=== PATIENT | female | born 1945 | race American Indian/Alaskan Native ===

== ENCOUNTER 2019-04-27 10:34 | Inpatient (IN) | payer MEDICAID, MEDICARE ==
--- NOTE | 2019-04-27 11:25 | Consultation ---
History of Present Illness - Reason for Consult Consult date: 04/27/19 end stage renal disease, other (initiating hemodialysis) - History of Present Illness This is a 73 year old female patient well known to our practice with a pmh significant for end stage renal disease, anemia associated with chronic renal failure, type 2 diabetes mellitus, hypertension, chronic lower extremity edema, and metabolic acidosis. Patient is being direct admitted to have tunneled HD catheter placed, and to initiate hemodialysis treatments. Patient and sister were seen in our office earlier this week and informed of the procedure and need for hospitalization. Patient denies alcohol, drugs, and tobacco use. Denies use of NSAIDs. She is accompanied by her sister today. Labs on admission/consultation significant for bicarb 16 and creatinine 6.1. Nephrology was consulted for further evaluation and treatment of end stage renal disease and initiation of dialysis. Past History Past Medical History: ESRD, hypertension, other (chronic lower extremitity edema/metabolic acidosis) Medications and Allergies Allergies Allergy/AdvReac Type Severity Reaction Status Date / Time No Known Allergies Allergy Unverified 04/27/19 11:19 Home Medications Medication Instructions Recorded Confirmed Last Taken Type Amlodipine Besylate [Norvasc] 10 mg PO DAILY 04/27/19 04/27/19 04/27/19 History 10 mg Furosemide [Lasix TAB] 80 mg PO BID 04/27/19 04/27/19 04/27/19 History 80 mg Review of Systems Constitutional: no weight loss, no fever, no chills Ears, nose, mouth and throat: no nasal discharge, no epistaxis, no headache Cardiovascular: edema (bilateral lower extremities), no chest pain, no palpitations, no shortness of breath Respiratory: no cough, no shortness of breath Gastrointestinal: no abdominal pain, no nausea, no vomiting, no diarrhea Genitourinary Female: no flank pain, no dysuria, no urinary frequency, no hematuria Musculoskeletal: no frequent falls Integumentary: no rash, no pruritis, no wounds Exam - General Appearance General appearance: well-developed, well-nourished, appears stated age EENT: ATNC, PERRL, mucous membranes moist Neck: Present: neck supple, trachea midline Respiratory: Clear to Ascultation, Decreased Breath Sounds (bilateral bases) Heart: regular, normal heart rate, S1S2, no murmurs Gastrointestinal: Present: normal, normoactive bowel sounds Integumentary: no rash, warm and dry Neurologic: no focal deficit, alert and oriented x3 Musculoskeletal: Present: other (2+ pitting edema bilateral lower extremities) Psychiatric: mood/affect appropriate, cooperative Results - Lab Results 04/27/19 12:27 04/27/19 12:27 Assessment and Plan 1. End stage renal disease: Likely secondary to diabetic nephropathy. GFR is currently 8. Avoid nephrotoxic agents. Meds dosage based on GFR. Patient needs to initiate hemodialysis. Needs tunneled HD catheter placed, IR consulted. Hemodialysis: 04/27. 2. FEN: Metabolic acidosis, monitor. Monitor lytes. 3. Hypertension: 4. Edema: Bilateral lower extremities, chronic. 5. Anemia: Epogen with HD. Monitor. 6. Type 2 DM:
--- NOTE | 2019-04-27 13:21 | History and Physical Report ---
History of Present Illness Date of admission: 04/27/19 11:45 Chief complaint: My doctor sent me here because I need dialysis History of present illness: 73 YO Female with ESRD, HTN, Acidosis admitted directly at the request of Dr. Desai. Thanking him patient was seen and evaluated by the nephrology service and was found to have end-stage renal disease and was in need of dialysis. Patient instructed to seek further care at [facility]. Patient admitted directly to [facility] and placed in observation status for medical stabilization and initiation of dialysis. Vascular surgery service was consulted for dialysis catheter placement. After placement of dialysis catheter patient was taken urgently to the dialysis suite for dialysis. Patient seen and evaluated upon arrival to her room. Patient denies fever, chills, chest pain, palpitations, hemoptysis, bright red blood per rectum, skin rash, recent ill contacts. No prior admission for review. No medication listed at time of my admission for reconciliation. Past History Past Medical History: ESRD, hypertension, other (chronic lower extremitity edema/metabolic acidosis) Past Surgical History: Other (Dialysis access) Social history: single. denies: smoking, alcohol abuse, prescription drug abuse Family history: hypertension Medications and Allergies Allergies Allergy/AdvReac Type Severity Reaction Status Date / Time No Known Allergies Allergy Unverified 04/27/19 11:19 Home Medications Medication Instructions Recorded Confirmed Last Taken Type Amlodipine Besylate [Norvasc] 10 mg PO DAILY 04/27/19 04/27/19 04/27/19 History 10 mg Furosemide [Lasix TAB] 80 mg PO BID 04/27/19 04/27/19 04/27/19 History 80 mg Review of Systems Constitutional: no weight loss, no weight gain, no chills, no sweats Ears, nose, mouth and throat: no ear pain, no tinnitis, no decreased hearing, no nose pain, no nasal congestion Breasts: no change in shape, no swelling, no mass Cardiovascular: no chest pain, no orthopnea, no palpitations, no rapid/irregular heart beat, no edema, no lightheadedness, no shortness of breath Respiratory: no cough, no cough with sputum, no hemoptysis, no shortness of breath Gastrointestinal: no abdominal pain, no nausea, no diarrhea, no constipation Genitourinary Female: no pelvic pain, no flank pain, no menorrhagia Menstruation: no post hysterectomy, no ammenorrhea, no ammenorrhea on BC, no period heavy, no period spotting Rectal: no pain, no incontinence, no bleeding Musculoskeletal: no neck stiffness, no neck pain, no shooting arm pain, no shooting leg pain Integumentary: no rash, no pruritis, no redness, no sores, no wounds Neurological: no transient paralysis, no numbness, no tingling Psychiatric: no anxiety, no sleep disturbances, no insomnia, no hypersomnia, no change in appetite, no change in libido Endocrine: no cold intolerance, no heat intolerance, no excessive thirst, no flushing Hematologic/Lymphatic: no easy bruising, no lymphedema Allergic/Immunologic: no urticaria, no allergic rhinitis, no wheezing, no persistent infections, no anaphylaxis, no angioedema Exam - Constitutional Vitals: Temp Pulse Resp BP Pulse Ox 98.5 F 84 18 168/69 98 04/27/19 12:23 04/27/19 12:23 04/27/19 12:23 04/27/19 12:23 04/27/19 12:23 General appearance: Present: mild distress, obese - EENT Eyes: Present: PERRL ENT: hearing intact, clear oral mucosa - Neck Neck: Present: supple, normal ROM - Respiratory Respiratory effort: normal Respiratory: bilateral: CTA - Cardiovascular Heart Sounds: Present: S1 & S2. Absent: rub, click - Extremities Extremities: pulses symmetrical, No edema Peripheral Pulses: within normal limits - Abdominal General gastrointestinal: Present: soft, non-tender, non-distended, normal bowel sounds Female genitourinary: Present: normal - Integumentary Integumentary: Present: clear, warm, dry - Musculoskeletal Musculoskeletal: gait normal, strength equal bilaterally - Psychiatric Psychiatric: appropriate mood/affect, intact judgment & insight - Neurologic Neurologic: CNII-XII intact, moves all extremities Results - Labs CBC & Chem 7: 04/27/19 12:27 04/27/19 12:27 Assessment and Plan - Patient Problems (1) End stage renal disease Current Visit: Yes Status: Acute Plan to address problem: Nephrology consulted in ED, strict I's/O, daily weight, monitor urine output every shift, avoid nephrotoxic agents, IR consulted for Vas-Cath placement, dialysis as per renal team. (2) Hypertension Current Visit: Yes Status: Acute Qualifiers: Hypertension type: essential hypertension Qualified Code(s): I10 - Essential (primary) hypertension Plan to address problem: Monitor blood pressure every shift, supportive care, continue medical management. (3) Metabolic acidosis Current Visit: Yes Status: Acute Plan to address problem: IV fluid resuscitation therapy, repeat BMP, urgent dialysis as per renal team. IV bicarbonate therapy as clinically indicated. (4) DVT prophylaxis Current Visit: Yes Status: Acute Plan to address problem: SCD to bilateral lower extremities while in bed, patient ambulatory.
[2019-04-27 13:26] LABS: Basophils # (Auto) 0.1 K/mm3 (0.0-0.1); Eosinophils # (Auto) 0.1 K/mm3 (0.0-0.4); Eosinophils % (Auto) 1.8 % (0.0-4.3); Hematocrit 24.5 % (30.3-42.9); Hemoglobin 8.3 gm/dl (10.1-14.3); Lymphocytes # (Auto) 0.7 K/mm3 (1.2-5.4); Lymphocytes % (Auto) 12.5 % (13.4-35.0); Mean Corpuscular HGB Conc 34 % (30-34); Mean Corpuscular Volume 83 fl (79-97); Monocytes # (Auto) 0.6 K/mm3 (0.0-0.8); Monocytes % (Auto) 11.5 % (0.0-7.3); Platelet Count 236 K/mm3 (140-440); Red Blood Count 2.93 M/mm3 (3.65-5.03); Red Cell Distribution Width 15.4 % (13.2-15.2)
[2019-04-27 13:37] LABS: INR 1.02 (0.87-1.13)
[2019-04-27 13:38] LABS: Partial Thromboplastin Time 30.9 Sec. (24.2-36.6)
[2019-04-27 13:53] LABS: Calcium 8.7 mg/dL (8.4-10.2)
[2019-04-27] MEDS ORDERED: MIDAZOLAM 2 MG/2 ML INJ ONE (14:04)
[2019-04-27] MEDS ORDERED: fentaNYL 100 MCG/2 ML INJ ONE (14:04)
[2019-04-27] MEDS ORDERED: HEPARIN/NS 5000 UNIT/500ML 500 ML IR ONE (14:04)
[2019-04-27] MEDS ORDERED: SODIUM CHLORIDE 0.9% 250ML 250 ML ONE (14:05)
[2019-04-27] MEDS ORDERED: LIDOCAINE 1%/EPINEPHRINE 1:100,000 VIAL (20 ML) INFILTRATI ONE (14:05)
[2019-04-27] MEDS: HEPARIN 10,000 UNITS/10 ML VIAL ONE ×2 (14:37→14:38)
[2019-04-27] MEDS ORDERED: SODIUM CHLORIDE 0.9% 100 ML IV PRN (14:39)
[2019-04-27] MEDS ORDERED: EPOETIN ALFA 10,000 UNIT/1 ML INJ SUB-Q PRN (14:39)
--- NOTE | 2019-04-27 14:45 | Operative Report ---
Operative Report Operative Report: Exam: Ultrasound and fluoroscopic guided placement of tunneled hemodialysis catheter Clinical indication: Patient with a history of end-stage renal disease requiring dialysis access Date: 04/27/2019 Procedure: Following an explanation of the risks, benefits and alternatives; written informed consent was obtained. The patient was brought to the angiographic suite and placed in supine position on the examination table. Initial ultrasound evaluation of her neck demonstrated a patent right internal regular vein. The patient's right neck and chest wall were prepped and draped in the usual sterile fashion. 1% lidocaine was used for anesthesia. Under ultrasound guidance, the right internal jugular vein was cannulated with a 7 cm 18-gauge needle. A 0.035 guidewire was advanced centrally. The needle was removed and a 5 Tongan vertebral catheter advanced over the guidewire. Together the guidewire and catheter were advanced into the IVC. The catheter was removed. An appropriate catheter exit site was chosen along the lateral right chest wall. 1% lidocaine was used for anesthesia at the catheter exit site and along the tunnel tract. A Bard 23 cm glide path tunneled hemodialysis catheter was then tunneled antegrade from the catheter exit site of the venotomy site. Following serial dilation over the guidewire under fluoroscopy, a 15 Tongan peel-away sheath was placed over the guidewire under fluoroscopy and advanced centrally. The guidewire and trocar were removed. The catheter was placed through the peel-away sheath and the tip positioned in the proximal right atrium. The peel-away sheath was removed. Both ports flushed and aspirated easily and more than locked with appropriate volumes of heparin. The venotomy was closed using 3-0 Vicryl suture and Dermabond. 3-0 Vicryl suture and Dermabond were also used to approximate the catheter exit site. The patient tolerated the procedure well. There were no immediate post procedure complications. Conscious sedation was performed under the guidance of radiologic nursing. Continuous cardiopulmonary monitoring was utilized. Impression: Ultrasound and fluoroscopic guided placement of tunneled hemodialysis catheter via the right internal jugular vein.
[2019-04-27] MEDS ORDERED: SODIUM CHLORIDE*PRIMING MACHINE ONLY FOR DIALYSIS MC ONE (16:51)
[2019-04-27 19:47] LABS: Hepatitis B Surface Antigen Non-Reactive (Negative); Hepatitis C Virus Antibody Non-Reactive (NonReactive)
[2019-04-28] MEDS ORDERED: ACETAMINOPHEN 325 MG TAB PO PRN (01:29)
[2019-04-28] MEDS ORDERED: SODIUM CHLORIDE 0.9% 100 ML IV PRN (09:12)
--- NOTE | 2019-04-28 10:28 | Progress Note ---
Assessment and Plan 1. End stage renal disease: Likely secondary to diabetic nephropathy. GFR is currently 8. Avoid nephrotoxic agents. Meds dosage based on GFR. Patient tolerated first HD on 04/27 well. Right chest permcath placed 04/27. Awaiting outpatient HD chair. Hemodialysis: 04/27, 2.7. 2. FEN: Metabolic acidosis, monitor. Monitor lytes. 3. Hypertension: 4. Edema: Bilateral lower extremities, chronic. 5. Anemia: Epogen with HD. Monitor. 6. Type 2 DM: Subjective Date of service: 04/28/19 Interval history: Patient was seen and examined at the bedside. Sister is present at bedside. Patient tolerated initial HD on 04/27 well. She has no new complaints today. Objective - Exam Narrative Exam: General appearance: well-developed, well-nourished, appears stated age, R chest permcath EENT: ATNC, PERRL, mucous membranes moist Neck: Present: neck supple, trachea midline Respiratory: Clear to Ascultation, Decreased Breath Sounds (bilateral bases) Heart: regular, normal heart rate, S1S2, no murmurs Gastrointestinal: Present: normal, normoactive bowel sounds Integumentary: no rash, warm and dry Neurologic: no focal deficit, alert and oriented x3 Musculoskeletal: Present: other (1+ pitting edema bilateral lower extremities) Psychiatric: mood/affect appropriate, cooperative - Vital Signs Vital signs: Vital Signs - 12hr 04/28/19 04/28/19 04/28/19 00:27 01:17 06:13 Temperature 102.2 F H 100.1 F H 99.0 F Pulse Rate 81 82 67 Respiratory 20 100 H 18 Rate Blood Pressure 159/71 Blood Pressure 153/69 [Left] O2 Sat by Pulse 97 96 Oximetry - Lab 04/27/19 12:27 04/27/19 12:27 Most recent lab results Calcium 8.7 mg/dL (8.4-10.2) 04/27/19 12:27 Medications & Allergies - Medications Allergies/Adverse Reactions: Allergies No Known Allergies Allergy (Unverified 04/27/19 11:19) Home Medications: Home Medications Medication Instructions Recorded Confirmed Last Taken Type Amlodipine Besylate [Norvasc] 10 mg PO DAILY 04/27/19 04/27/19 04/27/19 History 10 mg Furosemide [Lasix TAB] 80 mg PO BID 04/27/19 04/27/19 04/27/19 History 80 mg Active Medications: Generic Name Dose Route Start Last Admin Trade Name Freq PRN Reason Stop Dose Admin Acetaminophen 650 mg 04/28/19 01:29 04/28/19 01:50 Tylenol PO 650 mg Q4H PRN Administration Pain, Mild (1-3) Epoetin Kamaljit 10,000 unit 04/27/19 14:39 Procrit SUB-Q MITESH PRN hemodialysis Sodium Chloride 100 mls @ 999 mls/hr 04/28/19 09:12 Nacl 0.9% IV MITESH PRN Hypotension
--- NOTE | 2019-04-28 10:51 | XRay Report ---
CHEST 1 VIEW INDICATION: requirement for hemodialysis placement, r/o TB COMPARISON: None FINDINGS: Support devices: Right subclavian line projected over the superior vena cava, with the tip at the lev el of the atriocaval junction. Heart: Mildly enlarged Lungs/Pleura: Somewhat linear parenchymal density in both lung bases, most likely atelectasis. No con vincing evidence of acute disease. No pneumothorax. IMPRESSION: 1. Central line in the superior vena cava, with no pneumothorax or acute disease. Signer Name: Seven Rodriguez MD Signed: 04/28/2019 10:47 AM Workstation Name: [id number]
--- NOTE | 2019-04-28 13:47 | Progress Note ---
Assessment and Plan /End stage renal disease Nephrology consulted in ED, strict I's/O, daily weight, monitor urine output every shift, avoid nephrotoxic agents, Status post perm-Cath placement by IR, dialysis as per renal team. Need outpatient dialysis set up /Hypertension Monitor blood pressure every shift, supportive care, continue medical management. /febrile illness - negative UA and CXR - blood cx ordered, monitor for now /Metabolic acidosis due to progression of chronic renal disease Monitor BMP, sodium bicarbonate p.o. /Anemia likely due to chronic disease, continue to monitor H&H / DVT prophylaxis SCD to bilateral lower extremities while in bed, patient ambulatory. Disposition Home, pending outpatient dialysis set up Brief History: 73 YO Female with ESRD, HTN, Acidosis admitted directly at the request of Dr. Desai for the initiation of dialysis. She was placed PermCath by vascular yesterday, hospice case manager consulted for outpatient dialysis set up. Discharge pending on outpatient dialysis arrangement Radiological data: Chest x-ray: No acute disease Hospitalist Physical exam: GENERAL: well-developed elderly female lying on bed appeared to be in no discomfort. HEENT: Normocephalic. Atraumatic. No conjunctival congestion or icterus. Patient has moist mucous membranes. NECK: Supple. Trachea midline. CHEST/LUNGS: Clear to auscultated bilaterally, breathing nonlabored. No wheezes crackles or rhonchi. HEART/CARDIOVASCULAR: Regular in rate and rhythm. S1 and S2 positive. ABDOMEN: Abdomen is soft, nontender. Patient has normal bowel sounds. SKIN: There is no rash. Warm and dry. NEURO: No focal motor deficit. Follows command. MUSCULOSKELETAL: No joint effusion or tenderness. EXTRIMITY: No edema, no cyanosis or clubbing. PSYCH: Cooperative. Subjective Date of service: 04/28/19 Interval history: Patient seen and examined. Medical records and medication list reviewed. No acute event overnight noted by the RN. Patient denies any chest pain or difficulty breathing. Patient is tolerating diet. Status post dialysis today, patient spiking fever Discussed plan of care at bedside with patient. Objective - Constitutional Vitals: Vital Signs - 12hr 04/28/19 06:13 Temperature 99.0 F Pulse Rate 67 Respiratory 18 Rate O2 Sat by Pulse 96 Oximetry - Labs CBC & Chem 7: 04/27/19 12:27 04/29/19 04:06 Labs: Abnormal lab results 04/27/19 Range/Units 12:27 Carbon Dioxide 16 L (22-30) mmol/L BUN 54 H (7-17) mg/dL Creatinine 6.1 H (0.7-1.2) mg/dL Glucose 148 H (65-100) mg/dL
[2019-04-28 22:21] LABS: Bilirubin,Urine NEG (Negative); Blood,Urine MOD (Negative); Color,Urine Yellow (Yellow); Mucus,Urine FEW /HPF; Urobilinogen,Urine < 2.0 mg/dL (<2.0)
[2019-04-28 22:23] LABS: Protein,Urine >500 mg/dL (Negative)
[2019-04-29 05:40] LABS: Calcium 8.1 mg/dL (8.4-10.2)
[2019-04-29] MEDS ORDERED: SODIUM CHLORIDE 0.9% 100 ML IV PRN (09:15)
--- NOTE | 2019-04-29 12:24 | Progress Note ---
Assessment and Plan 1. End stage renal disease: CKD has progressed to ESRD and started on hemodialysis this admission. Avoid nephrotoxic agents. Meds dosage based on GFR. Patient tolerated HD well. Hemodialysis: 04/27, 04/28, 04/29. Await outpatient HD chair. 2. FEN: Metabolic acidosis, improved. Monitor lytes. 3. Hypertension: Monitor BP. 4. Fever: Unclear source. CXR negative. Blood and urine culture pending. 5. Edema: Bilateral lower extremities, chronic. Improving. 6. Anemia: Epogen with HD. Monitor. 7. Type 2 DM: Examination: General appearance: well-developed, well-nourished, appears stated age, not in distress HEENT: ATNC, VANITA Neck: neck supple, trachea midline Respiratory: Clear to Ascultation, decreased breath sounds (bilateral bases) Heart: regular, normal heart rate, S1S2, no murmur Gastrointestinal: soft, normoactive bowel sounds, NT Integumentary: no rash, warm and dry Neurologic: no focal deficit, alert and oriented x3 Ext: 1+ pitting edema bilateral lower extremities Psychiatric: mood/affect appropriate, cooperative Hemodialysis access: R IJ tunnel catheter Subjective Date of service: 04/29/19 Interval history: Patient was seen and examined while on HD. Doing ok. Objective - Vital Signs Vital signs: Vital Signs - 12hr 04/29/19 04/29/19 04/29/19 05:02 09:55 10:00 Temperature 98.8 F 98.8 F Pulse Rate 70 66 65 Respiratory 18 18 Rate Blood Pressure 146/60 154/74 164/62 O2 Sat by Pulse 96 Oximetry 04/29/19 04/29/19 04/29/19 10:15 10:30 10:45 Temperature Pulse Rate 61 61 61 Respiratory Rate Blood Pressure 160/78 164/77 187/80 O2 Sat by Pulse Oximetry 04/29/19 04/29/19 04/29/19 11:00 11:15 11:30 Temperature Pulse Rate 62 62 60 Respiratory Rate Blood Pressure 144/66 154/67 166/74 O2 Sat by Pulse Oximetry 04/29/19 04/29/19 04/29/19 11:45 12:00 12:15 Temperature Pulse Rate 56 L 61 67 Respiratory Rate Blood Pressure 185/75 128/70 152/77 O2 Sat by Pulse Oximetry - Lab 04/27/19 12:27 04/29/19 04:06 Most recent lab results Calcium 8.1 mg/dL (8.4-10.2) L 04/29/19 04:06 Medications & Allergies - Medications Allergies/Adverse Reactions: Allergies No Known Allergies Allergy (Unverified 04/27/19 11:19) Home Medications: Home Medications Medication Instructions Recorded Confirmed Last Taken Type Amlodipine Besylate [Norvasc] 10 mg PO DAILY 04/27/19 04/27/19 04/27/19 History 10 mg Furosemide [Lasix TAB] 80 mg PO BID 04/27/19 04/27/19 04/27/19 History 80 mg Active Medications: Generic Name Dose Route Start Last Admin Trade Name Freq PRN Reason Stop Dose Admin Acetaminophen 650 mg 04/28/19 01:29 04/28/19 01:50 Tylenol PO 650 mg Q4H PRN Administration Pain, Mild (1-3) Epoetin Kamaljit 10,000 unit 04/27/19 14:39 Procrit SUB-Q MITESH PRN hemodialysis Sodium Chloride 100 mls @ 999 mls/hr 04/28/19 09:12 Nacl 0.9% IV MITESH PRN Hypotension Sodium Chloride 100 mls @ 999 mls/hr 04/29/19 09:15 Nacl 0.9% IV MITESH PRN Hypotension
--- NOTE | 2019-04-29 14:04 | Progress Note ---
Assessment and Plan /febrile illness - negative UA and CXR - blood cx ordered -final result pending, monitor for now /End stage renal disease Nephrology consulted in ED, strict I's/O, daily weight, monitor urine output every shift, avoid nephrotoxic agents, Status post perm-Cath placement by IR, dialysis as per renal team. Need outpatient dialysis set up /Hypertension Monitor blood pressure every shift, supportive care, continue medical management. /Metabolic acidosis due to progression of chronic renal disease Monitor BMP, sodium bicarbonate p.o. /Anemia likely due to chronic disease, continue to monitor H&H / DVT prophylaxis SCD to bilateral lower extremities while in bed, patient ambulatory. Disposition Home, pending outpatient dialysis set up Brief History: 73 YO Female with ESRD, HTN, Acidosis admitted directly at the request of Dr. Desai for the initiation of dialysis. She was placed PermCath by vascular yesterday, case assistant consulted for outpatient dialysis set up. Discharge pending on outpatient dialysis arrangement and blood cx report Radiological data: Chest x-ray: No acute disease Hospitalist Physical exam: GENERAL: well-developed elderly female lying on bed appeared to be in no discomfort. HEENT: Normocephalic. Atraumatic. No conjunctival congestion or icterus. Patient has moist mucous membranes. NECK: Supple. Trachea midline. CHEST/LUNGS: Clear to auscultated bilaterally, breathing nonlabored. No wheezes crackles or rhonchi. HEART/CARDIOVASCULAR: Regular in rate and rhythm. S1 and S2 positive. ABDOMEN: Abdomen is soft, nontender. Patient has normal bowel sounds. SKIN: There is no rash. Warm and dry. NEURO: No focal motor deficit. Follows command. MUSCULOSKELETAL: No joint effusion or tenderness. EXTRIMITY: No edema, no cyanosis or clubbing. PSYCH: Cooperative. Subjective Date of service: 04/29/19 Interval history: Patient seen and examined. Medical records and medication list reviewed. No acute event overnight noted by the RN. Patient denies any chest pain or difficulty breathing. Patient is tolerating diet. Patient had few episodes of low grade temp Discussed plan of care at bedside with patient. Objective - Constitutional Vitals: Vital Signs - 12hr 04/29/19 04/29/19 04/29/19 05:02 09:55 10:00 Temperature 98.8 F 98.8 F Pulse Rate 70 66 65 Respiratory 18 18 Rate Blood Pressure 146/60 154/74 164/62 O2 Sat by Pulse 96 Oximetry 04/29/19 04/29/19 04/29/19 10:15 10:30 10:45 Temperature Pulse Rate 61 61 61 Respiratory Rate Blood Pressure 160/78 164/77 187/80 O2 Sat by Pulse Oximetry 04/29/19 04/29/19 04/29/19 11:00 11:15 11:30 Temperature Pulse Rate 62 62 60 Respiratory Rate Blood Pressure 144/66 154/67 166/74 O2 Sat by Pulse Oximetry 04/29/19 04/29/19 04/29/19 11:45 12:00 12:15 Temperature Pulse Rate 56 L 61 67 Respiratory Rate Blood Pressure 185/75 128/70 152/77 O2 Sat by Pulse Oximetry 04/29/19 04/29/19 12:30 12:45 Temperature Pulse Rate 62 63 Respiratory Rate Blood Pressure 185/72 165/77 O2 Sat by Pulse Oximetry - Labs CBC & Chem 7: 04/27/19 12:27 04/29/19 04:06 Labs: Abnormal lab results 04/29/19 Range/Units 04:06 Sodium 136 L (137-145) mmol/L Chloride 96.8 L (98-107) mmol/L BUN 28 H (7-17) mg/dL Creatinine 4.2 H (0.7-1.2) mg/dL Glucose 121 H (65-100) mg/dL Calcium 8.1 L (8.4-10.2) mg/dL
[2019-04-29] MEDS ORDERED: SODIUM CHLORIDE*PRIMING MACHINE ONLY FOR DIALYSIS MC ONE (15:36)
[2019-04-29] MEDS: amLODIPine 5 MG TAB PO SCH (16:32)
--- NOTE | 2019-04-30 09:27 | Progress Note ---
Assessment and Plan 1. End stage renal disease: CKD has progressed to ESRD and started on hemodialysis this admission. Avoid nephrotoxic agents. Meds dosage based on GFR. Patient tolerated HD well. Hemodialysis: 04/27, 04/28, 04/29. Await outpatient HD chair. 2. FEN: Metabolic acidosis, improved. Monitor lytes. 3. Hypertension: Add Lisinopril. Monitor BP. 4. Fever: Unclear source. CXR negative. Blood and urine culture pending. 5. Edema: Bilateral lower extremities, chronic. Improving. 6. Anemia: Epogen with HD. Monitor. 7. Type 2 DM: Examination: General appearance: well-developed, well-nourished, appears stated age, not in distress HEENT: ATNC, VANITA Neck: neck supple, trachea midline Respiratory: Clear to Ascultation, decreased breath sounds (bilateral bases) Heart: regular, normal heart rate, S1S2, no murmur Gastrointestinal: soft, normoactive bowel sounds, NT Integumentary: no rash, warm and dry Neurologic: no focal deficit, alert and oriented x3 Ext: 1+ pitting edema bilateral lower extremities Psychiatric: mood/affect appropriate, cooperative Hemodialysis access: R IJ tunnel catheter Subjective Date of service: 04/30/19 Interval history: Patient was seen and examined while on HD. Doing ok. Objective - Vital Signs Vital signs: Vital Signs - 12hr 04/29/19 04/30/19 22:43 05:32 Temperature 98.5 F 98.9 F Pulse Rate 71 64 Respiratory 18 20 Rate Blood Pressure 147/71 161/84 O2 Sat by Pulse 97 96 Oximetry - Lab 04/27/19 12:27 04/29/19 04:06 Most recent lab results Calcium 8.1 mg/dL (8.4-10.2) L 04/29/19 04:06 Medications & Allergies - Medications Allergies/Adverse Reactions: Allergies No Known Allergies Allergy (Unverified 04/27/19 11:19) Home Medications: Home Medications Medication Instructions Recorded Confirmed Last Taken Type Amlodipine Besylate [Norvasc] 10 mg PO DAILY 04/27/19 04/27/19 04/27/19 History 10 mg Furosemide [Lasix TAB] 80 mg PO BID 04/27/19 04/27/19 04/27/19 History 80 mg Active Medications: Generic Name Dose Route Start Last Admin Trade Name Freq PRN Reason Stop Dose Admin Acetaminophen 650 mg 04/28/19 01:29 04/28/19 01:50 Tylenol PO 650 mg Q4H PRN Administration Pain, Mild (1-3) Amlodipine Besylate 10 mg 04/29/19 13:00 04/29/19 16:32 Amlodipine PO 10 mg DAILY VANNESSA Administration Epoetin Kamaljit 10,000 unit 04/27/19 14:39 Procrit SUB-Q MITESH PRN hemodialysis Heparin Sodium (Porcine) 5,000 unit 04/29/19 22:00 Heparin SUB-Q Q12HR VANNESSA Sodium Chloride 100 mls @ 999 mls/hr 04/28/19 09:12 Nacl 0.9% IV MITESH PRN Hypotension Sodium Chloride 100 mls @ 999 mls/hr 04/29/19 09:15 Nacl 0.9% IV MITESH PRN Hypotension
[2019-04-30] MEDS: amLODIPine 5 MG TAB PO SCH (09:55)
[2019-04-30] MEDS: LISINOPRIL 20 MG TAB PO SCH (09:55)
[2019-04-30] MEDS: HEPARIN 5,000 UNIT/1 ML VIAL SUB-Q SCH (09:59)
--- NOTE | 2019-04-30 12:01 | Progress Note ---
Assessment and Plan /febrile illness - resolved - negative UA and CXR - blood cx ordered -negative /End stage renal disease Nephrology consulted in ED, strict I's/O, daily weight, monitor urine output every shift, avoid nephrotoxic agents, Status post perm-Cath placement by IR, dialysis as per renal team. Need outpatient dialysis set up /Hypertension Monitor blood pressure every shift, supportive care, continue medical management. /Metabolic acidosis due to progression of chronic renal disease Monitor BMP, sodium bicarbonate p.o. /Anemia likely due to chronic disease, continue to monitor H&H / DVT prophylaxis SCD to bilateral lower extremities while in bed, patient ambulatory. Disposition Home, pending outpatient dialysis set up Brief History: 73 YO Female with ESRD, HTN, Acidosis admitted directly at the request of Dr. Desai for the initiation of dialysis. She was placed PermCath by vascular yesterday, bilingual patient support caseworker consulted for outpatient dialysis set up. Discharge pending on outpatient dialysis arrangement Radiological data: Chest x-ray: No acute disease Hospitalist Physical exam: GENERAL: well-developed elderly female lying on bed appeared to be in no discomfort. HEENT: Normocephalic. Atraumatic. No conjunctival congestion or icterus. Nicole ent has moist mucous membranes. NECK: Supple. Trachea midline. CHEST/LUNGS: Clear to auscultated bilaterally, breathing nonlabored. No wheezes crackles or rhonchi. HEART/CARDIOVASCULAR: Regular in rate and rhythm. S1 and S2 positive. ABDOMEN: Abdomen is soft, nontender. Patient has normal bowel sounds. SKIN: There is no rash. Warm and dry. NEURO: No focal motor deficit. Follows command. MUSCULOSKELETAL: No joint effusion or tenderness. EXTRIMITY: No edema, no cyanosis or clubbing. PSYCH: Cooperative. Subjective Date of service: 04/30/19 Interval history: Patient seen and examined. Medical records and medication list reviewed. No acute event overnight noted by the RN. Patient denies any chest pain or difficulty breathing. Patient is tolerating diet. Patient mostly afebrile since yesterday Discussed plan of care at bedside with patient. Pending outpt HD setup Objective - Constitutional Vitals: Vital Signs - 12hr 04/30/19 04/30/19 05:32 09:55 Temperature 98.9 F Pulse Rate 64 64 Respiratory 20 Rate Blood Pressure 161/84 161/84 O2 Sat by Pulse 96 Oximetry - Labs CBC & Chem 7: 05/01/19 07:50 05/01/19 07:50
[2019-05-01 08:08] LABS: Hematocrit 22.6 % (30.3-42.9); Hemoglobin 7.6 gm/dl (10.1-14.3); Mean Corpuscular HGB Conc 34 % (30-34); Mean Corpuscular Volume 84 fl (79-97); Platelet Count 159 K/mm3 (140-440); Red Cell Distribution Width 15.2 % (13.2-15.2)
[2019-05-01 08:29] LABS: Calcium 8.2 mg/dL (8.4-10.2)
[2019-05-01] MEDS: amLODIPine 5 MG TAB PO SCH (10:14)
[2019-05-01] MEDS: LISINOPRIL 20 MG TAB PO SCH (10:15)
[2019-05-01] MEDS: HEPARIN 5,000 UNIT/1 ML VIAL SUB-Q SCH (10:17)
--- NOTE | 2019-05-01 12:24 | Progress Note ---
Assessment and Plan 1. End stage renal disease: CKD has progressed to ESRD and started on hemodialysis this admission. Avoid nephrotoxic agents. Meds dosage based on GFR. Patient tolerated HD well. Hemodialysis: 04/27, 04/28, 04/29. Await outpatient HD chair. 2. FEN: Metabolic acidosis, improved. Monitor lytes. 3. Hypertension: BP controlled. Monitor BP. 4. Fever: Unclear source. CXR negative. Blood and urine culture pending. 5. Edema: Bilateral lower extremities, chronic. Improving. 6. Anemia: Epogen with HD. Monitor. 7. Type 2 DM: Examination: General appearance: well-developed, well-nourished, appears stated age, not in distress HEENT: ATNC, VANITA Neck: neck supple, trachea midline Respiratory: Clear to Ascultation, decreased breath sounds (bilateral bases) Heart: regular, normal heart rate, S1S2, no murmur Gastrointestinal: soft, normoactive bowel sounds, NT Integumentary: no rash, warm and dry Neurologic: no focal deficit, alert and oriented x3 Ext: trace pitting edema bilateral lower extremities Psychiatric: mood/affect appropriate, cooperative Hemodialysis access: R IJ tunnel catheter Subjective Date of service: 05/01/19 Interval history: Patient was seen and examined while on HD. Doing ok. Objective - Vital Signs Vital signs: Vital Signs - 12hr 05/01/19 05/01/19 05/01/19 04:17 04:25 10:14 Temperature 99.0 F Pulse Rate 62 59 L Respiratory 16 Rate Blood Pressure 134/57 120/57 120/45 O2 Sat by Pulse 97 99 Oximetry 05/01/19 05/01/19 10:15 11:18 Temperature 97.3 F L Pulse Rate 60 Respiratory 20 Rate Blood Pressure 120/45 115/48 O2 Sat by Pulse 100 Oximetry - Lab 05/01/19 07:50 05/01/19 07:50 Most recent lab results Calcium 8.2 mg/dL (8.4-10.2) L 05/01/19 07:50 Phosphorus 4.40 mg/dL (2.5-4.5) 05/01/19 07:50 Medications & Allergies - Medications Allergies/Adverse Reactions: Allergies No Known Allergies Allergy (Unverified 04/27/19 11:19) Home Medications: Home Medications Medication Instructions Recorded Confirmed Last Taken Type Amlodipine Besylate [Norvasc] 10 mg PO DAILY 04/27/19 04/27/19 04/27/19 History 10 mg Furosemide [Lasix TAB] 80 mg PO BID 04/27/19 04/27/19 04/27/19 History 80 mg Active Medications: Generic Name Dose Route Start Last Admin Trade Name Freq PRN Reason Stop Dose Admin Acetaminophen 650 mg 04/28/19 01:29 04/28/19 01:50 Tylenol PO 650 mg Q4H PRN Administration Pain, Mild (1-3) Amlodipine Besylate 10 mg 04/29/19 13:00 05/01/19 10:14 Amlodipine PO Not Given DAILY VANNESSA Epoetin Kamaljit 10,000 unit 04/27/19 14:39 Procrit SUB-Q MITESH PRN hemodialysis Heparin Sodium (Porcine) 5,000 unit 04/29/19 22:00 05/01/19 10:17 Heparin SUB-Q 5,000 unit Q12HR VANNESSA Administration Sodium Chloride 100 mls @ 999 mls/hr 04/28/19 09:12 Nacl 0.9% IV MITESH PRN Hypotension Sodium Chloride 100 mls @ 999 mls/hr 04/29/19 09:15 Nacl 0.9% IV MITESH PRN Hypotension Lisinopril 20 mg 04/30/19 10:00 05/01/19 10:15 Zestril PO Not Given QDAY VANNESSA
--- NOTE | 2019-05-01 15:29 | Discharge Summary ---
Providers - Providers Date of Admission: 05/01/19 08:28 Date of discharge: 05/01/19 Attending physician: ELIJAH BROWN 04/27/19 11:16 Consult to Interventional Radiology [CONS] Routine Consulting Provider: MIKE CANTU Reason For Exam: needs tunneled HD catheter Place consult to:: DR. CANTU Notified:: OFFICE Phone number called:: [phone] Was contact made?: Yes If yes, spoke with:: GALEN Time called:: 12:18 Comment:: PAT NOTIFIED 04/27/19 11:41 Consult to Physician [CONS] Routine Comment: Consulting Provider: SOFÍA SALES Physician Instructions: Reason For Exam: ESRD NEEDING TO START DIALYSIS Primary care physician: SOFÍA SALES Hospitalization Pertinent studies: CXR - no acute disease Hospital course: Discharge diagnosis and Mx: /febrile illness - resolved - negative UA and CXR - blood cx ordered -negative /End stage renal disease Nephrology consulted in ED, strict I's/O, daily weight, monitor urine output every shift, avoid nephrotoxic agents, Status post perm-Cath placement by IR, dialysis as per renal team. Need outpatient dialysis set up - will f/u with Dr Sales /Hypertension Monitor blood pressure every shift, supportive care, continue medical management. on amlodipine and lisinopril /Metabolic acidosis due to progression of chronic renal disease Monitor BMP, sodium bicarbonate p.o. /Anemia likely due to chronic disease, continue to monitor H&H / DVT prophylaxis SCD to bilateral lower extremities while in bed, patient ambulatory. Disposition Home, pending outpatient dialysis set up -would be taken care off by Dr Sales Hospitalist Physical exam: GENERAL: well-developed elderly female lying on bed appeared to be in no discomfort. HEENT: Normocephalic. Atraumatic. No conjunctival congestion or icterus. Patient has moist mucous membranes. NECK: Supple. Trachea midline. CHEST/LUNGS: Clear to auscultated bilaterally, breathing nonlabored. No wheezes crackles or rhonchi. HEART/CARDIOVASCULAR: Regular in rate and rhythm. S1 and S2 positive. ABDOMEN: Abdomen is soft, nontender. Patient has normal bowel sounds. SKIN: There is no rash. Warm and dry. NEURO: No focal motor deficit. Follows command. MUSCULOSKELETAL: No joint effusion or tenderness. EXTRIMITY: No edema, no cyanosis or clubbing. PSYCH: Cooperative. Time spent for discharge: 34 minutes Core Measure Documentation - Palliative Care Palliative Care/ Comfort Measures: Not Applicable - Core Measures Any of the following diagnoses?: history only Exam - Constitutional Vitals: Temp Pulse Resp BP Pulse Ox 97.3 F L 60 20 115/48 100 05/01/19 11:18 05/01/19 11:18 05/01/19 11:18 05/01/19 11:18 05/01/19 11:18 Plan Activity: advance as tolerated Weight Bearing Status: Weight Bear as Tolerated Diet: renal Special Instructions: restrict fluid intake to (./) Follow up with: SOFÍA SALES MD [Primary Care Provider] - 7 Days Prescriptions: lisinopriL [Zestril TAB] 10 mg PO QDAY #30 tablet
[2019-05-01 17:21] VITALS: BP 121/50
[2019-05-02] MEDS ORDERED: LISINOPRIL 10 MG TAB PO SCH (10:00)
[2019-05-02] MEDS ORDERED: LISINOPRIL 20 MG TAB PO SCH (10:00)
== END 2019-05-01 19:00 | disposition home or self-care (01) | DRG 673 ==
LOC: 3A 10:34 → UNDOADMIN 10:34 → 3A 11:45 → INTOOBSV 11:45 → OBSVTOIN 05-01 08:28
PROVIDERS: ADMIT Internal Medicine; ATTEND Internal Medicine
PROC: 5A1D70Z Performance of Urinary Filtration, Intermittent, Less than 6 Hours Per Day (ICD-10-PCS; principal; 2019-04-27)
PROC: 0JH63XZ Insertion of Tunneled Vascular Access Device into Chest Subcutaneous Tissue and Fascia, Percutaneous Approach (ICD-10-PCS; 2019-04-27)
PROC: 02H633Z Insertion of Infusion Device into Right Atrium, Percutaneous Approach (ICD-10-PCS; 2019-04-27)
PROC: B5181ZA Fluoroscopy of Superior Vena Cava using Low Osmolar Contrast, Guidance (ICD-10-PCS; 2019-04-27)
PROC: B543ZZA Ultrasonography of Right Jugular Veins, Guidance (ICD-10-PCS; 2019-04-27)
PROC: 5A1D70Z Performance of Urinary Filtration, Intermittent, Less than 6 Hours Per Day (ICD-10-PCS; 2019-04-28)
PROC: 5A1D70Z Performance of Urinary Filtration, Intermittent, Less than 6 Hours Per Day (ICD-10-PCS; 2019-04-29)
DX: I12.0 Hypertensive chronic kidney disease with stage 5 chronic kidney disease or end stage renal disease (principal); N18.6 End stage renal disease; E11.22 Type 2 diabetes mellitus with diabetic chronic kidney disease; D63.1 Anemia in chronic kidney disease; R60.9 Edema, unspecified; E87.2 Acidosis; Z82.49 Family history of ischemic heart disease and other diseases of the circulatory system; Z99.2 Dependence on renal dialysis
CPT/HCPCS: 36415; 36558; 71045; 76937; 77001; 80048; 80053; 80074; 81001; 84100; 85025; 85027; 85610; 85730; 87040; 87086; G0378; C1750; G0379; J1644; J2250; J3010; J7030; J7050

== ENCOUNTER 2019-05-17 13:05 | Emergency (ER) | payer MEDICARE ==
--- NOTE | 2019-05-17 13:32 | Event Note ---
ED Screening Note Date of service: 05/17/19 Time: 13:31 ED Screening Note: 73 y o fem was sent by her pcp for abnormal lab findings, low hemaglobin This initial assessment/diagnostic orders/clinical plan/treatment(s) is/are subject to change based on patients health status, clinical progression and re- assessment by fellow clinical providers in the ED. Further treatment and workup at subsequent clinical providers discretion. Patient/guardian urged not to elope from the ED as their condition may be serious if not clinically assessed and managed. Initial orders include: cbc,bmp,
[2019-05-17 16:14] LABS: Albumin 3.8 g/dL (3.9-5); Calcium 8.8 mg/dL (8.4-10.2)
[2019-05-17 16:17] LABS: Hematocrit 24.5 % (30.3-42.9); Hemoglobin 8.1 gm/dl (10.1-14.3); Mean Corpuscular HGB Conc 33 % (30-34); Mean Corpuscular Volume 84 fl (79-97); Red Blood Count 2.91 M/mm3 (3.65-5.03); Red Cell Distribution Width 14.8 % (13.2-15.2)
[2019-05-17 16:18] LABS: Platelet Count 188 K/mm3 (140-440)
--- NOTE | 2019-05-17 20:21 | Emergency Department Report ---
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 Patient denies any shortness of breath, headache, dizziness. Patient also denies chest pain. Patient denies any blood in her stool or any other abnormal bleeding. -: unknown Severity scale (0 -10): 0 Improves with: none Worsens with: none Associated Symptoms: denies other symptoms Treatments Prior to Arrival: none - Related Data Home Medications Medication Instructions Recorded Confirmed Last Taken Amlodipine Besylate [Norvasc] 10 mg PO DAILY 04/27/19 04/27/19 04/27/19 10 mg Previous Rx's Medication Instructions Recorded Last Taken Type lisinopriL [Zestril TAB] 10 mg PO QDAY #30 tablet 05/01/19 Unknown Rx Allergies Allergy/AdvReac Type Severity Reaction Status Date / Time No Known Allergies Allergy Unverified 04/27/19 11:19 ED Review of Systems ROS: Stated complaint: SENT BY /BLOOD COUNT LOW Other details as noted in HPI Comment: All other systems reviewed and negative Constitutional: denies: chills, fever Eyes: denies: eye pain, eye discharge, vision change ENT: denies: ear pain, throat pain Respiratory: denies: cough, shortness of breath, wheezing Cardiovascular: denies: chest pain, palpitations Endocrine: no symptoms reported Gastrointestinal: denies: abdominal pain, nausea, diarrhea Genitourinary: denies: urgency, dysuria, discharge Musculoskeletal: denies: back pain, joint swelling, arthralgia Skin: denies: rash, lesions Neurological: denies: headache, weakness, paresthesias Psychiatric: denies: anxiety, depression Hematological/Lymphatic: denies: easy bleeding, easy bruising ED Past Medical Hx - Past Medical History Previous Medical History?: Yes Hx Hypertension: Yes Hx Renal Disease: Yes (Tues, Th, Sat) - Surgical History Additional Surgical History: right chest wall vascath - Social History Smoking Status: Never Smoker Substance Use Type: None - Medications Home Medications: Home Medications Medication Instructions Recorded Confirmed Last Taken Type Amlodipine Besylate [Norvasc] 10 mg PO DAILY 04/27/19 04/27/19 04/27/19 History 10 mg lisinopriL [Zestril TAB] 10 mg PO QDAY #30 tablet 05/01/19 Unknown Rx ED Physical Exam - General Limitations: No Limitations General appearance: alert, in no apparent distress - Head Head exam: Present: atraumatic, normocephalic - Eye Eye exam: Present: normal appearance, PERRL, EOMI - ENT ENT exam: Present: mucous membranes moist - Neck Neck exam: Present: normal inspection - Respiratory Respiratory exam: Present: normal lung sounds bilaterally. Absent: respiratory distress - Cardiovascular Cardiovascular Exam: Present: regular rate, normal rhythm. Absent: systolic murmur, diastolic murmur, rubs, gallop - GI/Abdominal GI/Abdominal exam: Present: soft, normal bowel sounds. Absent: distended, tenderness - Extremities Exam Extremities exam: Present: normal inspection - Back Exam Back exam: Present: normal inspection - Neurological Exam Neurological exam: Present: alert, oriented X3, CN II-XII intact. Absent: motor sensory deficit - Psychiatric Psychiatric exam: Present: normal affect, normal mood - Skin Skin exam: Present: warm, dry, intact, normal color. Absent: rash ED Course Vital Signs 05/17/19 05/17/19 13:30 20:09 Temperature 98.8 F Pulse Rate 83 69 Respiratory 18 18 Rate Blood Pressure 143/51 Blood Pressure 148/56 [Right] O2 Sat by Pulse 98 99 Oximetry ED Medical Decision Making - Lab Data Result diagrams: 05/17/19 15:33 05/17/19 15:33 Lab Results 05/17/19 05/17/19 05/17/19 Range/Units 15:30 15:33 15:33 WBC 6.2 (4.5-11.0) K/mm3 RBC 2.91 L (3.65-5.03) M/mm3 Hgb 8.1 L (10.1-14.3) gm/dl Hct 24.5 L (30.3-42.9) % MCV 84 (79-97) fl MCH 28 (28-32) pg MCHC 33 (30-34) % RDW 14.8 (13.2-15.2) % Plt Count 188 (140-440) K/mm3 Lymph % (Auto) [employer]ights [employer] Measures [place] % (Auto) [employer]ights [employer] Measures Eos % (Auto) [employer]ights [employer] Measures Baso % (Auto) Inspector Weights And Measures Lymph # [employer]ights [employer] Measures [place] # [employer]ights [employer] Measures Eos # [employer]ights [employer] Measures Baso # [employer]ights [employer] Measures Seg Neutrophils % [employer]ights [employer] Measures Seg Neutrophils # Inspector Weights And Measures Sodium 135 L (137-145) mmol/L Potassium 4.0 (3.6-5.0) mmol/L Chloride 93.9 L (98-107) mmol/L Carbon Dioxide 23 (22-30) mmol/L Anion Gap 22 mmol/L BUN 28 H (7-17) mg/dL Creatinine 4.3 H (0.7-1.2) mg/dL Estimated GFR 12 ml/min BUN/Creatinine Ratio 7 % Glucose 91 (65-100) mg/dL Calcium 8.8 (8.4-10.2) mg/dL Total Bilirubin 0.20 (0.1-1.2) mg/dL AST 19 (5-40) units/L ALT 7 (7-56) units/L Alkaline Phosphatase 95 (35-129) units/L Total Protein 7.8 (6.3-8.2) g/dL Albumin 3.8 L (3.9-5) g/dL Albumin/Globulin Ratio 1.0 % Blood Type O POSITIVE Antibody Screen Negative - Medical Decision Making Updated the patient and told her hemoglobin was 8.1 Prior hemoglobins on 05/01 was 7.6 and 05/17 8.3 Spoke with and he states that the laboratory value that was called into him was 6.3 Patient can be discharged home Critical care attestation.: If time is entered above; I have spent that time in minutes in the direct care of this critically ill patient, excluding procedure time. ED Disposition Clinical Impression: Anemia Disposition: - TO HOME OR SELFCARE Is pt being admited?: No Does the pt Need Aspirin: No Condition: Stable Instructions: Anemia (ED) Additional Instructions: return if worse Referrals: ROBIN CULLEN MD [Primary Care Provider] - 3-5 Days Time of Disposition: 20:20
[2019-05-17 21:18] VITALS: BP 107/65
== END 2019-05-17 21:20 | disposition home or self-care (01) ==
LOC: ED 13:05
DX: D64.9 Anemia, unspecified (principal); I10 Essential (primary) hypertension; Z87.448 Personal history of other diseases of urinary system; Z98.890 Other specified postprocedural states; Z79.899 Other long term (current) drug therapy
CPT/HCPCS: 36415; 80053; 85025; 86850; 86900; 86901

== ENCOUNTER 2019-05-31 13:54 | Outpatient (CLI) | payer MEDICARE ==
--- NOTE | 2019-05-31 16:08 | Ultrasound Report ---
COMPLETE BILATERAL BREAST ULTRASOUND HISTORY: Abnormal mammogram and abnormal bilateral breast ultrasound. COMPARISON: [facility] 03/31/2019 and 04/26/2019 mammograms and bilateral breast ultrasound.. FINDINGS: Complete sonographic evaluation of the right breast including imaging of the four quadrant s and subareolar areas reveals no distinct abnormality. The technologist measured an area of benign a ppearing breast parenchyma at 11:00 7 cm from the nipple. Ultrasound of the right axilla demonstrates several lymph nodes with central fat and benign morphology. The cortex measures approximately 4 mm m aximum. Complete sonographic evaluation of the left breast including imaging of the four quadrants and subare olar areas reveals several abnormalities. An irregular heterogeneous hypoechoic solid mass at 2:00 15 cm from the nipple measures approximately 2.9 x 1.1 x 1.2 cm. This mass is palpable and correlates w ith a mammographic mass with calcifications. No mass is identified at 1:00. An oval solid relatively smooth retroareolar mass at 12:00 is hypoechoic and measures 1.6 x 1.2 x 1.5 cm. It has a large benig n-appearing calcification within it. An abnormal retroareolar duct at 7:00 contains intraductal mass in the duct measures 7 mm in diameter. There is no mammographic correlate for this ductal mass or for the hypoechoic mass which is retroareolar at 12:00. Ultrasound of the left axilla demonstrates sever al lymph nodes with central fat and benign morphology. The cortex of the largest lymph node measures 3 mm. IMPRESSION: 1. A suspicious 2.9 cm left breast mass at 2:00 15 cm from the nipple. Recommend ultrasound-guided ne edle biopsy. 2. A suspicious intraductal retroareolar mass at 7:00. Recommend ultrasound-guided vacuum-assisted ne edle biopsy. 3. A benign 1.6 cm retroareolar mass at 12:00. 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 4. Benign findings and the right breast and no suspicious finding in the right breast. BI-RADS Category 4: Suspicious Signer Name: Janak Baltazar MD Signed: 05/31/2019 4:04 PM Workstation Name: [id number]
== END 2019-05-31 13:55 | disposition home or self-care (01) ==
LOC: SPVWC 13:54
PROVIDERS: ATTEND Surgery
DX: Z12.31 Encounter for screening mammogram for malignant neoplasm of breast (principal); N63.41 Unspecified lump in right breast, subareolar

== ENCOUNTER 2019-08-18 08:34 | Observation (INO) | payer MEDICARE ==
--- NOTE | 2019-08-07 12:43 | Anesthesia Consultation ---
Anesthesia Consult and Med Hx Date of service: 08/18/19 - Airway Anesthetic Teeth Evaluation: Edentulous ROM Head & Neck: Adequate Mental/Hyoid Distance: Adequate Mallampati Class: Class II Intubation Access Assessment: Good - Pre-Operative Health Status ASA Pre-Surgery Classification: ASA3 Proposed Anesthetic Plan: General Nerve Block: PEC - Pulmonary Hx Smoking: No Hx Respiratory Symptoms: No Hx Sleep Apnea: No (AGUSTIN PRE SCREEN LOW RISK.) - Cardiovascular System Hx Hypertension: Yes (X 8 MONTHS) Hx Heart Attack/AMI: No Hx Percutaneous Transluminal Coronary Angioplasty (PTCA): No Hx Cardia Arrhythmia: No - Central Nervous System CVA: No - Gastrointestinal Hx Gastroesophageal Reflux Disease: No - Endocrine Hx Renal Disease: Yes Hx End Stage Renal Disease: Yes ( started HD 04/2019) Hx Liver Disease: No Hx Non-Insulin Dependent Diabetes: No (noted in chart review but patient denies) Hx Hypothyroidism: Yes (NO LONGER ON MEDS) - Hematic Hx Anemia: Yes - Other Systems Hx Cancer: Yes
[~2019-08-18 08:34] MED LIST: ceFAZolin/Water 2 GM/20 ML 2 GM/20 ML SYRINGE IV NR
[2019-08-18] MEDS ORDERED: ONDANSETRON 4 MG/2 ML INJ IV PRN ×2 (08:48→15:54)
[2019-08-18] MEDS ORDERED: HYDROmorphone 1 MG/1 ML INJ IV PRN (08:48)
[2019-08-18] MEDS ORDERED: fentaNYL 100 MCG/2 ML INJ IV ONE (08:48)
[2019-08-18] MEDS ORDERED: ACETAMINOPHEN 325 MG TAB PO ONE (08:52)
[2019-08-18] MEDS ORDERED: SODIUM CHLORIDE 0.9% 1000 ML 1,000 ML IV SCH (09:00)
[2019-08-18] MEDS ORDERED: MIDAZOLAM 2 MG/2 ML INJ IV NR (09:00)
[2019-08-18] MEDS ORDERED: CELECOXIB 200 MG CAP PO NR (09:00)
[2019-08-18] MEDS ORDERED: BUPIVACAINE-EPINEPHRINE/PF 0.25%-1:200,000 (30 ML) VIAL INFILTRATI ONE (09:50)
[2019-08-18 10:00] LABS: Hematocrit 37.2 % (30.3-42.9); Hemoglobin 12.7 gm/dl (10.1-14.3); Mean Corpuscular HGB Conc 34 % (30-34); Mean Corpuscular Volume 80 fl (79-97); Platelet Count 186 K/mm3 (140-440); Red Blood Count 4.67 M/mm3 (3.65-5.03); Red Cell Distribution Width 18.9 % (13.2-15.2)
[2019-08-18] MEDS ORDERED: NEOSTIGMINE 10MG/10 ML INJ MDV ONE (10:00)
[2019-08-18] MEDS ORDERED: SODIUM CHLORIDE P/F VIAL 10 ML 10 ML ONE (10:19)
[2019-08-18] MEDS ORDERED: METHYLENE BLUE 50 MG/10 ML AMP ONE (10:19)
[2019-08-18] MEDS ORDERED: propofoL 200 MG/20 ML VIAL IV ONE (10:22)
[2019-08-18] MEDS ORDERED: ROCURONIUM 50 MG/5 ML INJ IV ONE (10:22)
[2019-08-18] MEDS ORDERED: dexAMETHasone 20 MG/5 ML VIAL ONE (10:22)
[2019-08-18] MEDS ORDERED: HYDROmorphone 1 MG/1 ML INJ ONE (10:22)
[2019-08-18] MEDS ORDERED: ONDANSETRON 4 MG/2 ML INJ ONE (10:22)
[2019-08-18] MEDS ORDERED: LIDOCAINE MPF (2%) 20 MG/1 ML VIAL 5 ML ONE (10:22)
[2019-08-18 10:35] LABS: Calcium 9.5 mg/dL (8.4-10.2)
[2019-08-18] MEDS ORDERED: METHYLENE BLUE 50 MG/10 ML AMP IV ONE (11:09)
[2019-08-18] MEDS ORDERED: SODIUM CHLORIDE 0.9% P/F 10 ML VIAL INFILTRATI ONE (11:10)
[2019-08-18] MEDS ORDERED: WATER FOR IRRIG STERILE 1,500 ML BOTTLE IR ONE (11:11)
[2019-08-18] MEDS ORDERED: GLYCOPYRROLATE 0.4 MG/2 ML INJ ONE ×2 (11:57→14:50)
[2019-08-18] MEDS ORDERED: ePHEDrine SULFATE 50 MG/1 ML INJ ONE (12:21)
[2019-08-18] MEDS ORDERED: hydrALAZINE 20 MG/1 ML INJ ONE (15:28)
[2019-08-18] MEDS ORDERED: VERAPAMIL 5 MG/2 ML INJ ONE (15:31)
[2019-08-18] MEDS ORDERED: ACETAMINOPHEN 325 MG TAB PO PRN (15:54)
--- NOTE | 2019-08-18 15:56 | History and Physical Report ---
History of Present Illness Chief complaint: I need dialysis History of present illness: 73 YO Female with ESRD on HD (T,R,Sa), HTN,BrCa admitted directly to medical floor for reinitiation of dialysis. Pt seen and evaluated in her room. Patient denies fever, chills, chest pain, palpitations, hemoptysis, bright red b lood per rectum, skin rash, recent ill contacts, or known exposure to COVID-19. Prior admission on 05/04/2019 reviewed. All listed medication reconciled at time of admission. advanced care planning conducted. Nephrology consulted for dialysis. Past History Past Medical History: cancer, ESRD, hypertension, other (see hpi) Past Surgical History: mastectomy, Other (dialysis access) Social history: single Family history: hypertension Medications and Allergies Allergies Allergy/AdvReac Type Severity Reaction Status Date / Time No Known Allergies Allergy Verified 06/07/19 17:40 Home Medications Medication Instructions Recorded Confirmed Last Taken Type Amlodipine Besylate [Norvasc] 10 mg PO DAILY 04/27/19 08/18/19 08/18/19 05:00 History lisinopriL [Zestril TAB] 10 mg PO QDAY #30 tablet 05/01/19 08/18/19 08/17/19 09:30 Rx Anastrozole [Arimidex] 1 mg PO DAILY 08/02/19 08/18/19 08/17/19 09:30 History Ergocalciferol (Vitamin D2) 50,000 unit PO QWEEK 08/02/19 08/18/19 08/12/19 12:00 History [Vitamin D2] Furosemide [Lasix TAB] 80 mg PO DAILY 08/02/19 08/18/19 Unknown History hydroCHLOROthiazide [Hctz] 12.5 mg PO QDAY 08/02/19 08/18/19 08/17/19 09:30 History Active Meds: Active Medications Celecoxib (Celebrex) 200 mg PO PREOP NR Stop: 08/18/19 23:59 Hydromorphone HCl (Dilaudid) 0.5 mg IV Q10MIN PRN PRN Reason: Pain , Severe (7-10) Stop: 08/18/19 23:59 Sodium Chloride (Nacl 0.9% 1000 Ml) 1,000 mls @ 42 mls/hr IV DIRECT VANNESSA Last Admin: 05/29/20 09:40 Dose: 42 mls/hr Documented by: Midazolam HCl (Versed) 2 mg IV PREOP NR Stop: 08/18/19 23:59 Ondansetron HCl (Zofran) 4 mg IV ONCE PRN PRN Reason: Nausea And Vomiting Review of Systems Constitutional: no weight loss, no weight gain, no fever, no chills Ears, nose, mouth and throat: no ear pain, no ear discharge, no decreased hearing, no nose pain, no nasal congestion, no nasal discharge, no sinus press ure, no sinus pain Breasts: no change in shape, no swelling, no mass Cardiovascular: no chest pain, no orthopnea, no palpitations, no rapid/irregular heart beat, no edema Respiratory: no cough, no excessive sputum, no hemoptysis, no dyspnea on exertion, no congestion, no pleurisy, no pain on inspiration Gastrointestinal: no abdominal pain, no vomiting, no diarrhea, no change in bowel habits, no hematemesis Genitourinary Female: no pelvic pain, no flank pain, no menorrhagia, no dysuria, no urinary frequency, no urgency, no stress incontinence, no post void dribbling Menstruation: no currently menstrual, no ammenorrhea, no period normal, no men ses 1-7 days Rectal: no pain, no incontinence, no bleeding, no itching, no discharge Musculoskeletal: no neck stiffness, no neck pain, no shooting arm pain, no arm numbness/tingling, no low back pain, no hot joints, no muscle weakness, no muscle cramps, no atrophy Integumentary: no rash, no redness, no wounds, no boils Neurological: no transient paralysis, no parathesias, no numbness, no tingling, no syncope, no headaches, no convulsions, no change in speech, no confusion Psychiatric: no anxiety, no change in sleep habits, no sleep disturbances, no hypersomnia, no change in libido, no hopelessness, no anhedonia, no confusion, no irritability Endocrine: no cold intolerance, no heat intolerance, no excessive thirst, no polydipsia, no weight change, no increase in ring/shoe/hat size, no deepening of the voice, no thyroid mass, no low blood sugars Hematologic/Lymphatic: no easy bruising, no easy bleeding, no lymphadenopathy Allergic/Immunologic: no urticaria, no wheezing, no persistent infections, no anaphylaxis Exam - Constitutional Vitals: Temp Pulse Resp BP Pulse Ox 98.5 F 53 L 16 113/87 99 08/18/19 09:50 08/18/19 09:50 08/18/19 10:20 08/18/19 09:50 08/18/19 09:50 General appearance: Present: no acute distress, well-nourished - EENT Eyes: Present: PERRL ENT: hearing intact, clear oral mucosa - Neck Neck: Present: supple, normal ROM - Respiratory Respiratory effort: normal Respiratory: bilateral: CTA - Cardiovascular Heart Sounds: Present: S1 & S2. Absent: rub, click - Extremities Extremities: pulses symmetrical, No edema Peripheral Pulses: within normal limits - Abdominal General gastrointestinal: Present: soft, non-tender, non-distended, normal bowel sounds Female genitourinary: Present: normal - Integumentary Integumentary: Present: clear, warm, dry - Musculoskeletal Musculoskeletal: gait normal, strength equal bilaterally - Psychiatric Psychiatric: appropriate mood/affect, intact judgment & insight - Neurologic Neurologic: CNII-XII intact, moves all extremities Results - Labs CBC & Chem 7: 08/18/19 09:35 08/18/19 09:35 Labs: Abnormal lab results 08/18/19 08/18/19 08/18/19 Range/Units 09:35 09:35 10:02 MCH 27 L (28-32) pg RDW 18.9 H (13.2-15.2) % Potassium 3.3 L (3.6-5.0) mmol/L BUN 26 H (7-17) mg/dL Creatinine 4.7 H (0.7-1.2) mg/dL Glucose 119 H (65-100) mg/dL POC Glucose 112 H (70-105) Assessment and Plan - Patient Problems (1) End stage renal disease Current Visit: No Status: Acute Plan to address problem: Strict I/O, Daily weight, monitor uop q shift, nephrology consulted, dialysis as per renal team. (2) Hypertension Current Visit: No Status: Acute Qualifiers: Hypertension type: essential hypertension Qualified Code(s): I10 - Essential (primary) hypertension Plan to address problem: monitor uop q shift, continue prehospital medication (3) Breast cancer Current Visit: Yes Status: Acute Plan to address problem: Outpatient oncology follow-up. (4) DVT prophylaxis Current Visit: No Status: Acute Plan to address problem: SCD to BLE while in bed,
--- NOTE | 2019-08-18 15:58 | Mammography Report ---
Mammographic specimen imaging INDICATION: Patient with history of left breast cancer presented for surgical excision today, now the specimen is presented for evaluation. COMPARISON: Mammographic imaging from 06/07/2019. FINDINGS: Left-sided mastectomy specimen was submitted for evaluation the areas in question on the pr evious diagnostic mammogram appear to be within the specimen. The specimen was reviewed by the magen n immediately after excision, as well. Signer Name: Harman Elizabeth MD Signed: 08/18/2019 3:53 PM Workstation Name: [id number]
--- NOTE | 2019-08-18 16:44 | Operative Report ---
Operative Report Operative Report: Date of Service: August 18, 2019 Preoperative diagnosis: Left breast upper-outer quadrant Cancer Postoperative diagnosis: Same Procedure: Left total mastectomy with sentinel lymph node biopsy Surgeon: Lorena Mcintosh M.D. [place] Can Worker: Bria Chery M.D. Anesthesia: General Findings: Left breast 2 clips present within left total mastectomy. 3 sentinel lymph nodes identified and negative for malignancy on frozen section of pathology Complications: None Drains: Two 19 Fr drains Estimated blood loss: 50 cc Disposition: Patient transferred to the Recovery Room in stable condition Indications for operative procedure: 73-year-old lady with left breast DCIS with microcalcifications, solid growth pattern, ER/NM positive, HER2 negative at the 2:00 position, 15 cm from the nipple; Focal ADH and usual hyperplasia at the retroareolar area. After discussion of her cancer and the retroareolar location of ADH, and the patient's multiple medical conditions, discussed with patient (and her sister who was present at the time) the surgical procedures. Patient wished to proceed with total mastectomy with sentinel lymph node biopsy, possible axillary lymph node dissection She understands the role of possible adjuvant chemotherapy and radiation therapy post mastectomy. She has met with medical oncology as well. Because of the COVID-19 Pandemic, patient had beenr taking Anastrazole while awaiting her surgery. Procedure in detail: Anesthesia placed a left pectoral muscle block in the operating room prior to surgery. In the operating room the patient was placed supine on the operating table. General anesthesia was administered. The left nipple areola complex was injected with radioisotope which was then massaged into the breast for 5 minutes. The left breast and axilla were prepped and draped in the normal sterile operative fashion. Timeout was performed. Attention was first paid to the right axilla. A gamma probe scanned the axilla with area of hotspot identified. A lazy S incision was marked over the axilla overlying the area with the highest gamma probe count. The skin incision was made with a 10 blade knife and dissection taken down to the subcutaneous tissues. The axillary fascia in the axilla was opened and the gamma probe was inserted into the axilla, 3 sentinel lymph nodes were identified with the gamma probe (one of which was clinically palpable but minimally hot). SLNs were dissected free and sent for frozen section to pathology. No further gamma probe counts noted in the axilla. Lymph nodes were sent to pathology with findings negative for malignancy noted on frozen section. All returned as negative, with one node noted to be reactive. Typical mastectomy illiptical incision marking was made with incision the nipple-areolar complex. Attention was first paid to the left breast. Gamma probe scanned the axilla with area of hotspot identified. A skin incision was made with a 10 blade knife and dissection taken down to the subcutaneous tissues. First began raising of the superior flap to the level of the clavicle superiorly and posteriorly to the pectoralis muscle. Followed by raising of the medial flap to the level of the sternum and posteriorly to the pectoralis muscle. Followed by raising of the lateral flap to the level of the latissimus dorsi muscle and taken down posteriorly. The axillary fascia in the axilla was opened and the gamma probed was inserted into the axilla, 3 sentinel lymph nodes were identified with the gamma probe. SLNs were dissected free and sent to pathology. All remaining counts were less than 10% of highest count. Lymph nodes were sent to pathology with findings negative for malignancy noted on frozen section, but each noted to have fibrosis in the center. Then proceeded with raising of the inferior flap to the level of the inframammary fold taken posterior to the pectoralis muscle. The mastectomy/left breast was removed from the pectoralis mu scle without incident. The specimen was appropriately marked and sent to radiology with clips present and then sent to pathology.The chest wall was irrigated and dried. Hemostasis was obtained. Two 19 Serbian drains was placed and secured with 2-0 nylon suture. The incision was approximated with 3-0 Vicryl, then skin was closed with 4-0 monocryl. Dermabond was placed over the incision, and biopatches around the drains. Patient tolerated the procedure well. Patient was awakened and successfully extubated without incident. Patient transferred to the PACU in stable condition.
[2019-08-18] MEDS ORDERED: hydrALAZINE 20 MG/1 ML INJ IV ONE (16:55)
[2019-08-18] MEDS ORDERED: LISINOPRIL 10 MG TAB PO SCH (18:20)
[2019-08-18] MEDS ORDERED: hydroCHLOROthiazide 12.5 MG CAP PO SCH (18:20)
[2019-08-18 19:08] LABS: Calcium 8.5 mg/dL (8.4-10.2)
--- NOTE | 2019-08-18 21:17 | Post Anesthesia Evaluation ---
- Post Anesthesia Evaluation Patient Participated: Yes Airway Patent: Yes Stable Respiratory Function: Yes Nausea/Vomiting: No Temp > 96.8F: Yes Pain Manageable: Yes Adequeate Hydration: Yes Anesthesia Complications: No Block Receding Appropriately: Not Applicable Patient on Ventilator: No
--- NOTE | 2019-08-18 21:17 | Anesthesia Day of Surgery ---
Anesthesia Day of Surgery - Day of Surgery Patient Examined: Yes Patient H&P Reviewed: Yes Patient is NPO: Yes
[2019-08-19] MEDS ORDERED: SODIUM CHLORIDE 0.9% 100 ML IV PRN (06:26)
--- NOTE | 2019-08-19 09:38 | Consultation ---
History of Present Illness - Reason for Consult Consult date: 08/19/19 end stage renal disease - History of Present Illness is a 73 year old female patient well known to our practice with history significant for type 2 diabetes mellitus, hypertension, ESRD on hemodialysis (TTS), anemia associated with ESRD and Left breast upper-outer quadrant Cancer who was admitted yesterday and underwent L total mastectomy. Patient denies any complaint at this time. Post-op pain is mostly controlled. She is due for hemodialysis today. Labs significant for creatinine 4.7. Nephrology was consulted for further evaluation and treatment of end stage renal disease. Past History Past Medical History: cancer, diabetes, dialysis, ESRD, hypertension, other (see hpi) Past Surgical History: mastectomy, Other (dialysis access) Social history: single Family history: hypertension Medications and Allergies Allergies Allergy/AdvReac Type Severity Reaction Status Date / Time No Known Allergies Allergy Verified 06/07/19 17:40 Home Medications Medication Instructions Recorded Confirmed Last Taken Type Amlodipine Besylate [Norvasc] 10 mg PO DAILY 04/27/19 08/18/19 08/18/19 05:00 History lisinopriL [Zestril TAB] 10 mg PO QDAY #30 tablet 05/01/19 08/18/19 08/17/19 09:30 Rx Anastrozole [Arimidex] 1 mg PO DAILY 08/02/19 08/18/19 08/17/19 09:30 History Ergocalciferol (Vitamin D2) 50,000 unit PO QWEEK 08/02/19 08/18/19 08/12/19 12:00 History [Vitamin D2] Furosemide [Lasix TAB] 80 mg PO DAILY 08/02/19 08/18/19 Unknown History hydroCHLOROthiazide [Hctz] 12.5 mg PO QDAY 08/02/19 08/18/19 08/17/19 09:30 History oxyCODONE /ACETAMINOPHEN [Percocet 1 tab PO Q6HR PRN #20 tablet 08/19/19 Unknown Rx 5/325] Active Meds: Active Medications Acetaminophen (Tylenol) 650 mg PO Q4H PRN PRN Reason: Pain MILD(1-3)/Fever >100.5/MORE Amlodipine Besylate (Amlodipine) 10 mg PO DAILY VANNESSA Ergocalciferol (Vitamin D2) 50,000 unit PO QWEEK VANNESSA Furosemide (Lasix) 80 mg PO QDAY [facility] Hydrochlorothiazide (Hctz) 12.5 mg PO QDAY [facility] Sodium Chloride (Nacl 0.9% 1000 Ml) 1,000 mls @ 42 mls/hr IV DIRECT VANNESSA Last Admin: 08/18/19 09:40 Dose: 42 mls/hr Documented by: Sodium Chloride (Nacl 0.9%) 100 mls @ 999 mls/hr IV MITESH PRN PRN Reason: Hypotension Lisinopril (Zestril) 10 mg PO QDAY [facility] Miscellaneous Medication (Anastrozole [Arimidex]) 1 mg PO DAILY [facility] Ondansetron HCl (Zofran) 4 mg IV ONCE PRN PRN Reason: Nausea And Vomiting Ondansetron HCl (Zofran) 4 mg IV Q8H PRN PRN Reason: Nausea And Vomiting Sodium Chloride (Sodium Chloride Flush Syringe 10 Ml) 10 ml IV BID VANNESSA Sodium Chloride (Sodium Chloride Flush Syringe 10 Ml) 10 ml IV PRN PRN PRN Reason: LINE FLUSH Review of Systems Constitutional: no weight loss, no weight gain, no fever, no chills, no anorexia, no weakness Breasts: deferred Cardiovascular: high blood pressure, no chest pain, no orthopnea, no edema, no syncope, no lightheadedness, no shortness of breath Respiratory: no cough, no hemoptysis, no shortness of breath Gastrointestinal: no abdominal pain, no nausea, no vomiting, no diarrhea, no melena Genitourinary Female: no dysuria Musculoskeletal: no muscle weakness Integumentary: no rash Neurological: no convulsions, no aphasia, no change in speech, no change in mentation Exam - Vital Signs Vital signs: Vital Signs Temp Pulse Resp BP Pulse Ox 98.5 F 66 20 172/71 98 08/07/19 10:30 08/07/19 10:30 08/07/19 10:30 08/07/19 10:30 08/07/19 10:30 - General Appearance General appearance: well-developed, appears stated age, other (no distress, R IJ tunnel catheter) EENT: ATNC, PERRL, hearing intact, vision intact Neck: Present: neck supple, trachea midline Respiratory: Clear to Ascultation Heart: regular, S1S2, no murmurs Gastrointestinal: Present: normoactive bowel sounds. Absent: tenderness, distended Integumentary: other (L chest area dressing noted) Neurologic: no focal deficit, no asterixis, alert and oriented x3 Musculoskeletal: Present: other (no edema, R arm AVF) Results - Lab Results 08/18/19 09:35 08/18/19 18:34 Most recent lab results Calcium 8.5 mg/dL (8.4-10.2) 08/18/19 18:34 Assessment and Plan 1. End stage renal disease: Patient is on maintenance hemodialysis three times a week, TTS schedule. Med dosage based on GFR. Hemodialysis: 08/18. 2. FEN: Metabolic acidosis, HD today. Monitor lytes. 3. Hypertension: BP controlled. Monitor BP. 4. L breast cancer: S/p total mastectomy. 5. Anemia: Epogen with HD. Monitor. 6. Type 2 DM.
--- NOTE | 2019-08-19 09:40 | Progress Note ---
Assessment and Plan A/ 73-year-old lady with ESRD on HD s/p Left total mastectomy, SLNB, POD#1. SLNs sent for frozen section returned as negative. Patient progressed well overnight. P/ If all well post-dialysis, from surgical standpoint, patient is cleared for discharge. - Patient to follow-up in Breast clinic on 08/24/2019 at [facility] ([phone]) Subjective Date of service: 08/19/19 Principal diagnosis: Left breast cancer Interval history: Ms. Miranda Marcano is a 73-year-old lady s/p left total mastectomy, sentinel lymph node biopsy for left breast cancer, POD#1. Patient with history of ESRD on HD. Post-op patient's blood pressure was labile but stabilized. Overnight patient progressed well, pain controlled with little complaint. Patient is sche duled to have dialysis this morning. Objective - Exam Narrative Exam: Left chest wall incision clean, dry and intact. No erythema, no swelling, no discharge, minimal tenderness. Mastectomy bed flat TATE drains in place and functioning with blood noted in drains. Overnight output was 90 from TATE #1 and 30 from TATE #2. - Constitutional Vitals: Vital Signs - 12hr 08/18/19 08/19/19 08/19/19 23:30 04:56 07:43 Temperature 97.8 F 97.3 F L 98.2 F Pulse Rate 67 62 61 Respiratory 16 20 18 Rate Blood Pressure 150/68 137/60 Blood Pressure 134/56 [Left] O2 Sat by Pulse 100 95 97 Oximetry General appearance: Present: no acute distress - EENT Eyes: PERRL, EOM intact ENT: hearing intact - Neck Neck: supple, normal ROM - Respiratory Respiratory effort: normal - Breasts Breasts: other (Incision site clean, dry and intact, no erythema, no discharge, minimal tenderness. Mastectomy bed flat; TATE drains in place and functioning TATE #1 90, #2 30 at shift change this morning) - Cardiovascular Rhythm: regular Extremities: no ischemia - Gastrointestinal General gastrointestinal: Present: soft, non-tender, non-distended Rectal Exam: deferred - Genitourinary Female genitourinary: deferred - Integumentary Integumentary: clear, warm, dry - Musculoskeletal Musculoskeletal: strength equal bilaterally - Psychiatric Psychiatric: appropriate mood/affect, intact judgment & insight, memory intact - Labs CBC & Chem 7: 08/18/19 09:35 08/18/19 18:34 Labs: Abnormal lab results 08/18/19 08/18/19 08/18/19 Range/Units 09:35 09:35 10:02 MCH 27 L (28-32) pg RDW 18.9 H (13.2-15.2) % Potassium 3.3 L (3.6-5.0) mmol/L Chloride (98-107) mmol/L Carbon Dioxide (22-30) mmol/L BUN 26 H (7-17) mg/dL Creatinine 4.7 H (0.7-1.2) mg/dL Glucose 119 H (65-100) mg/dL POC Glucose 112 H (70-105) 08/18/19 Range/Units 18:34 MCH (28-32) pg RDW (13.2-15.2) % Potassium 3.4 L (3.6-5.0) mmol/L Chloride 95.7 L (98-107) mmol/L Carbon Dioxide 21 L D (22-30) mmol/L BUN 29 H (7-17) mg/dL Creatinine 4.7 H (0.7-1.2) mg/dL Glucose 166 H (65-100) mg/dL POC Glucose (70-105) Medications & Allergies - Medications Allergies/Adverse Reactions: Allergies No Known Allergies Allergy (Verified 06/07/19 17:40) Home Medications: Home Medications Medication Instructions Recorded Confirmed Last Taken Type Amlodipine Besylate [Norvasc] 10 mg PO DAILY 04/27/19 08/18/19 08/18/19 05:00 History lisinopriL [Zestril TAB] 10 mg PO QDAY #30 tablet 05/01/19 08/18/19 08/17/19 09:30 Rx Anastrozole [Arimidex] 1 mg PO DAILY 08/02/19 08/18/19 08/17/19 09:30 History Ergocalciferol (Vitamin D2) 50,000 unit PO QWEEK 08/02/19 08/18/19 08/12/19 12:00 History [Vitamin D2] Furosemide [Lasix TAB] 80 mg PO DAILY 08/02/19 08/18/19 Unknown History hydroCHLOROthiazide [Hctz] 12.5 mg PO QDAY 08/02/19 08/18/19 08/17/19 09:30 History Active Medications: Generic Name Dose Route Start Last Admin Trade Name Freq PRN Reason Stop Dose Admin Acetaminophen 650 mg 08/18/19 15:54 Tylenol PO Q4H PRN Pain MILD(1-3)/Fever >100.5/MORE Amlodipine Besylate 10 mg 08/19/19 10:00 Amlodipine PO DAILY [facility] Ergocalciferol 50,000 unit 08/25/19 10:00 Vitamin D2 PO QWEEK VANNESSA Furosemide 80 mg 08/19/19 10:00 Lasix PO QDAY [facility] Hydrochlorothiazide 12.5 mg 08/18/19 18:20 Hctz PO QDAY [facility] Sodium Chloride 1,000 mls @ 42 mls/hr 08/18/19 09:00 08/18/19 09:40 Nacl 0.9% 1000 Ml IV 42 mls/hr DIRECT VANNESSA Administration Sodium Chloride 100 mls @ 999 mls/hr 08/19/19 06:26 Nacl 0.9% IV MITESH PRN Hypotension Lisinopril 10 mg 08/18/19 18:20 Zestril PO QDAY [facility] Miscellaneous Medication 1 mg 08/19/19 10:00 Anastrozole [Arimidex] PO DAILY [facility] Ondansetron HCl 4 mg 08/18/19 08:48 Zofran IV ONCE PRN Nausea And Vomiting Ondansetron HCl 4 mg 08/18/19 15:54 Zofran IV Q8H PRN Nausea And Vomiting Sodium Chloride 10 ml 08/18/19 22:00 Sodium Chloride Flush Syringe 10 Ml IV BID VANNESSA Sodium Chloride 10 ml 08/18/19 15:54 Sodium Chloride Flush Syringe 10 Ml IV PRN PRN LINE FLUSH
[2019-08-19] MEDS ORDERED: NON-FORMULARY EACH (Furosemide [Lasix Tab] 80 MG) PO SCH (10:00)
[2019-08-19] MEDS ORDERED: FUROSEMIDE 40 MG TAB PO SCH (10:00)
[2019-08-19] MEDS ORDERED: ANASTROZOLE 1 MG PO SCH (10:00)
[2019-08-19] MEDS ORDERED: amLODIPine 5 MG TAB PO SCH (10:00)
[2019-08-19] MEDS ORDERED: SODIUM CHLORIDE*PRIMING MACHINE ONLY FOR DIALYSIS MC ONE (10:11)
[2019-08-19 12:06] LABS: Hepatitis B Surface Antigen Non-Reactive (Negative); Hepatitis C Virus Antibody Non-Reactive (NonReactive)
[2019-08-19 15:41] VITALS: BP 119/40
--- NOTE | 2019-08-19 16:47 | Discharge Summary ---
Providers - Providers Date of Admission: 08/18/19 16:24 Attending physician: SHELLY ESTEBAN 08/18/19 15:54 Consult to Physician [CONS] Routine Comment: Consulting Provider: SOFÍA SALES Physician Instructions: Reason For Exam: esrd needing dialysis Primary care physician: ROBIN CULLEN MD Hospitalization Condition: Good Procedures: Hemodialysis Hospital course: 73 YO Female with ESRD on HD (T,R,Sa), HTN,BrCa admitted directly to medical floor for reinitiation of dialysis. Pt seen and evaluated in her room. Patient denied fever, chills, chest pain, palpitations, hemoptysis, bright red blood per rectum, skin rash, recent ill contacts, or known exposure to COVID-19. Patient convalesced well during hospital course. Patient treated with dialysis. advanced care planning conducted. Nephrology consulted. Patient medically optimized and back to usual state of health. Patient seen and evaluated after dialysis and was found to be medically optimized and back to usual state of health. Patient found to have no significant new physical exam findings. Patient discharged home and instructed to resume previous outpatient dialysis schedule as per nephrology team. Patient instructed to follow-up with her primary care physician within 3 to 5 days. Patient instructed to follow-up with nephrology as instructed. 35 minutes dedicated to patient discharge and coordination of care. Disposition: TO HOME OR SELFCARE - Discharge Diagnoses (1) End stage renal disease Status: Acute (2) Hypertension Status: Acute Qualifiers: Hypertension type: essential hypertension Qualified Code(s): I10 - Essential (primary) hypertension (3) Breast cancer Status: Acute (4) DVT prophylaxis Status: Acute Core Measure Documentation - Palliative Care Palliative Care/ Comfort Measures: Not Applicable - Core Measures Any of the following diagnoses?: none Exam - Constitutional Vitals: Temp Pulse Resp BP Pulse Ox 98.3 F 58 L 19 119/40 100 08/19/19 14:55 08/19/19 14:55 08/19/19 14:55 08/19/19 14:55 08/19/19 14:55 General appearance: Present: no acute distress, well-nourished - EENT Eyes: Present: PERRL ENT: hearing intact, clear oral mucosa - Neck Neck: Present: supple, normal ROM - Respiratory Respiratory effort: normal Respiratory: bilateral: CTA - Cardiovascular Heart Sounds: Present: S1 & S2. Absent: rub, click - Extremities Extremities: pulses symmetrical, No edema Peripheral Pulses: within normal limits - Abdominal General gastrointestinal: Present: soft, non-tender, non-distended, normal bowel sounds Female genitourinary: Present: normal - Integumentary Integumentary: Present: clear, warm, dry - Musculoskeletal Musculoskeletal: gait normal, strength equal bilaterally - Psychiatric Psychiatric: appropriate mood/affect, intact judgment & insight - Neurologic Neurologic: CNII-XII intact, moves all extremities Plan Activity: advance as tolerated Diet: renal Follow up with: ROBIN CULLEN MD [Primary Care Provider] - 7 Days Prescriptions: oxyCODONE /ACETAMINOPHEN [Percocet 5/325] 1 tab PO Q6HR PRN #20 tablet PRN Reason: Pain
[2019-08-25] MEDS ORDERED: ERGOCALCIFEROL (VIT D2) 50,000 UNIT CAP PO SCH (10:00)
== END 2019-08-19 18:10 | disposition home or self-care (01) ==
LOC: OR 08:34 → IMCU 16:24 → 3B-SURG 17:29
PROVIDERS: ADMIT Internal Medicine; ATTEND Internal Medicine
DX: Z03.818 Encounter for observation for suspected exposure to other biological agents ruled out (principal); C50.412 Malignant neoplasm of upper-outer quadrant of left female breast; I12.0 Hypertensive chronic kidney disease with stage 5 chronic kidney disease or end stage renal disease; N18.6 End stage renal disease; E11.22 Type 2 diabetes mellitus with diabetic chronic kidney disease; E87.2 Acidosis; D64.9 Anemia, unspecified; Z99.2 Dependence on renal dialysis
CPT/HCPCS: 19303; 36415; 38525; 38792; 76098; 78800; 80048; 80074; 82962; 85027; 88305; 88307; 88309; 88333; 88342; 96374; A9541; G0257; G0378; J0360; J1100; J1170; J2250; J2405; J2704; J2710; J3010; J7030; Q9968; U0003; 88302; 88331

== ENCOUNTER 2019-12-26 08:46 | Outpatient (CLI) | payer MEDICARE ==
--- NOTE | 2019-12-26 10:14 | Ultrasound Report ---
EXAMINATION: Right Limited Breast Ultrasound, 12/26/2019 INDICATION: PERSONAL HX OF MALIGNANT NEOPLASM OF BREAST. Patient presents for evaluation of an area of palpable c oncern in the right breast. COMPARISON: Prior mammogram 11/16/2019 FINDINGS: Targeted ultrasound evaluation was performed of the area of interest. Targeted ultrasound of the area of palpable concern in the right breast 11:00 position located 6 cm from the nipple revea ls an island of focal dense fibroglandular tissue. No discrete cystic or solid lesion identified. IMPRESSION: 1. Focal dense tissue is seen in the area of palpable concern in the right breast. No suspicious cyst ic or solid lesion identified, therefore clinical correlation is recommended. Follow up recommendation: Back to schedule. BI-RADS Category 2: Benign. Signer Name: Merced Gurrola MD Signed: 12/26/2019 10:09 AM Workstation Name: [email or web address]
== END 2019-12-26 08:47 | disposition home or self-care (01) ==
LOC: SPVWC 08:46
PROVIDERS: ATTEND Surgery
DX: N63.11 Unspecified lump in the right breast, upper outer quadrant (principal); Z85.3 Personal history of malignant neoplasm of breast

== ENCOUNTER 2020-04-02 09:11 | Outpatient (CLI) | payer MEDICARE ==
--- NOTE | 2020-04-02 11:04 | Mammography Report ---
DIGITAL SCREENING MAMMOGRAM WITH CAD, 04/02/2020 CLINICAL INFORMATION / INDICATION: Routine screening mammography. The patient has a personal history of left breast cancer treated with mastectomy. TECHNIQUE: Digital bilateral 2D mammography was obtained in the craniocaudal and mediolateral obliqu e projections. This examination was interpreted with the benefit of Computer-Aided Detection analysis . COMPARISON: 03/31/2019 FINDINGS: Breast Density: There are scattered areas of fibroglandular density. No dominant mass, suspicious calcifications, or architectural distortion in either breast. Scattered coarse calcifications and vascular calcifications are again noted. IMPRESSION: No mammographic evidence of malignancy. Follow up recommendation: Routine yearly BI-RADS Category 2: Benign. A "normal" or negative report should not discourage follow up or biopsy of a clinically significant f inding. A written summary of these findings will be mailed to the patient. The patient will be entered into a mammography reporting system which will generate a reminder letter for the patient's next appointmen t at the appropriate interval. The [employer] recommends yearly mammograms starting at age 40 and continuing as l kali as a woman is in good health. Breast MRI is recommended for women with an approximate 20-25% or greater lifetime risk of breast cancer, including women with a strong family history of breast or ova xavier cancer or who have been treated for Hodgkin's disease. Signer Name: Zuleyka David MD Signed: 04/02/2020 10:59 AM Workstation Name: [email or web address]
== END 2020-04-02 09:12 | disposition home or self-care (01) ==
LOC: SPVWC 09:11
PROVIDERS: ATTEND Surgery
DX: Z12.31 Encounter for screening mammogram for malignant neoplasm of breast (principal)

== ENCOUNTER 2021-05-26 09:31 | Outpatient (CLI) | payer MEDICARE ==
--- NOTE | 2021-05-27 15:29 | Mammography Report ---
DIGITAL SCREENING MAMMOGRAM WITH CAD, 05/26/2021 CLINICAL INFORMATION / INDICATION: Routine screening mammography. TECHNIQUE: Digital right 2D mammography was obtained in the craniocaudal and mediolateral oblique pr ojections. This examination was interpreted with the benefit of Computer-Aided Detection analysis. COMPARISON: 04/02/2020, 11/16/2019 FINDINGS: Breast Density: There are scattered areas of fibroglandular density. There is oval mass now present in the upper outer quadrant of the right breast, anterior depth, very superficial in location. Mass measures approximately 3 cm. This will need further evaluation with rig ht breast ultrasound and possibly spot compression imaging. Benign calcifications and benign vascular calcifications are present. IMPRESSION: 3 cm mass has developed in the superficial right breast at approximately 11:00. Recommend further ariela luation with ultrasound and possibly spot compression imaging. Follow up recommendation: Ultrasound BI-RADS Category 0: INCOMPLETE. Needs additional imaging evaluation and/or prior mammograms for oscar hayes. A "normal" or negative report should not discourage follow up or biopsy of a clinically significant f inding. A written summary of these findings will be mailed to the patient. The patient will be entered into a mammography reporting system which will generate a reminder letter for the patient's next appointmen t at the appropriate interval. The [employer] recommends yearly mammograms starting at age 40 and continuing as l kali as a woman is in good health. Breast MRI is recommended for women with an approximate 20-25% or greater lifetime risk of breast cancer, including women with a strong family history of breast or ova xavier cancer or who have been treated for Hodgkin's disease. Signer Name: Yelena Ramirez MD Signed: 05/27/2021 3:24 PM Workstation Name: [email or web address]
== END 2021-05-26 09:32 | disposition home or self-care (01) ==
LOC: SPVWC 09:31
PROVIDERS: ATTEND Surgery
DX: Z12.31 Encounter for screening mammogram for malignant neoplasm of breast (principal); N63.11 Unspecified lump in the right breast, upper outer quadrant; N64.89 Other specified disorders of breast

== ENCOUNTER 2021-06-13 07:48 | Outpatient (CLI) | payer MEDICARE ==
--- NOTE | 2021-06-13 08:42 | Ultrasound Report ---
ULTRASOUND BREAST RIGHT LIMITED, 06/13/2021 CLINICAL INFORMATION / INDICATION: Z85.3 HX OF MALIGNANT NEOPLASM OF BREAST. TECHNIQUE: Targeted ultrasound evaluation was performed of the area of interest. COMPARISON: 05/26/2021 FINDINGS: There is a 2.6 x 1.4 cm heterogeneous mass with some areas of shadowing and some mild marginal vascul arity in the 11:00 position of the right breast 5 cm from the nipple which appears to correspond to t he mammographic abnormality. IMPRESSION: Mass lesion in the upper outer quadrant of the right breast is heterogeneous with areas o f shadowing and mild peripheral vascularity. Follow up recommendation: Biopsy BI-RADS Category 4: SUSPICIOUS FOR MALIGNANCY. A normal or "negative" report should not preclude biopsy or follow-up of a clinically suspicious find ing. Signer Name: Jah Joy MD Signed: 06/13/2021 8:38 AM Workstation Name: [email or web address]
== END 2021-06-13 07:49 | disposition home or self-care (01) ==
LOC: US 07:48
PROVIDERS: ATTEND Surgery
DX: N63.11 Unspecified lump in the right breast, upper outer quadrant (principal); Z79.899 Other long term (current) drug therapy; Z85.3 Personal history of malignant neoplasm of breast